=== PATIENT | male | born 1995 | race Caucasian/White ===

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

== ENCOUNTER 2018-02-16 20:46 | Emergency (ER) | payer BC, OTHER ==
--- NOTE | 2018-02-16 16:19 | EDPHY ---
H & P Stated Complaint: DYSPNEA,DIZZINESS Time Seen by Provider: 02/16/18 16:04 HPI/ROS: 22 yo M presents after eating a veggie burger with c/o redness, itching, dizziness, feels an allergic reaction has started. He has hx of allergies to all nuts, shellfish, eggs. Review of systems As per HPI General no fever no chills no weakness HEENT no eye pain no eye discharge. No eye redness, no sore throat Respiratory no cough, no shortness of breath Cardiac no chest pain, no peripheral edema GI no abdominal pain, no diarrhea, no constipation, no nausea, no vomiting no flank pain, no hematuria, no dysuria Musculoskeletal no myalgias, no joint pain Heme no easy bruising, no easy bleeding Endo no polyuria, no polydipsia Skin positive rash positive pruritus Neuro no syncope, positive dizziness, no headaches Source: Patient, Family Exam Limitations: No limitations - Personal History Current Tetanus Diphtheria and Acellular Pertussis (TDAP): Yes Tetanus Vaccine Date: < 10 years - Medical/Surgical History Hx Asthma: Yes Hx Chronic Respiratory Disease: No Hx Diabetes: No Hx Cardiac Disease: No Hx Renal Disease: No Hx Cirrhosis: No Hx Alcoholism: No Hx HIV/AIDS: No Hx Splenectomy or Spleen Trauma: No Other PMH: Lyme disease. asthma. anaphylAXIS - Family History Significant Family History: No pertinent family hx - Social History Smoking Status: Never smoked Alcohol Use: None Drug Use: None - Physical Exam Exam: 22-year-old male alert and oriented in moderate distress secondary to itching, dizziness HEENT atraumatic normocephalic, extraocular muscles intact, anicteric Oropharynx positive for erythema negative exudate, tolerating her own secretions No uvular edema, no uvular deviation, no stridor Neck supple no meningismus Lungs clear to auscultation bilaterally, no wheezing Heart regular rate and rhythm without murmur rub or gallop Abdomen nondistended normoactive bowel sounds soft nontender Back no CVA tenderness, no step-offs, no spinal tenderness Extremities no cyanosis clubbing or edema Neuro alert and oriented, no focal deficits Skin-erythema to face , neck , chest , arms-blanching Constitutional: Initial Vital Signs Temperature (C) 36.8 C 02/16/18 16:13 Heart Rate 84 02/16/18 16:13 Respiratory Rate 20 02/16/18 16:13 Blood Pressure 152/105 H 02/16/18 16:13 O2 Sat (%) 97 02/16/18 16:13 O2 Delivery Mode Room Air Allergies/Adverse Reactions: gluten Allergy (Intermediate, Verified 02/16/18 16:11) Shellfish *RETIRED-11/12/11 Allergy (Intermediate, Verified 02/16/18 16:11) EGGS Allergy (Intermediate, Uncoded 10/16/09 00:14) Hives PEANUTS Allergy (Intermediate, Uncoded 10/16/09 00:15) Hives TREE NUTS Allergy (Intermediate, Uncoded 10/16/09 00:14) Hives Home Medications: Medication Instructions Recorded Epi Pen PRN 10/16/09 EPINEPHrine [Epipen 0.3 MG] 0.3 mg IM ONCE #2 syr 02/16/18 Famotidine [Pepcid 20 MG (*)] 20 mg PO BID #10 tab 02/16/18 predniSONE 40 mg PO DAILY 3 Days #3 tablet 02/16/18 Medical Decision Making ED Course/Re-evaluation: Pt seen and evaluated for an allergic reaction, likely to nuts. Pt given Epi 0.3 mg IM then Diphenhydramine 25 mg IVP Solumedrol 125 mg IVP he continued to itch, and have fluctuating erythema Given Diphenhydramine 25 mg IVP and Famotidine 20 mg IVP With continued erythema , given a repeat dose of epinephrine 0.3 mg IM After two doses of epinephrine and my concern that he may have a large lump of allergen sitting in his gut, I contacted the hospitalist and planned to place him in the ICU in case he were to need multiple more doses of epinephrine, just as a bed was assigned he began to look markedly better and agreed to stay in the ED for 4 more hours of observation. Imp Severe allergic reaction Plan Home when improved rx for epi pen famotidine bid x 5 days prednisone burst 40 mg x 3 days Differential Diagnosis: allergic reaction - Data Points Medications Given: Discontinued Medications Diphenhydramine HCl (Benadryl Injection) 25 mg IVP EDNOW ONE Stop: 02/16/18 16:36 Last Admin: 02/16/18 16:37 Dose: 25 mg Diphenhydramine HCl (Benadryl Injection) 25 mg IVP EDNOW ONE Stop: 02/16/18 16:46 Last Admin: 02/16/18 16:57 Dose: 25 mg Epinephrine HCl (Epinephrine) 0.3 mg IM EDNOW ONE Stop: 02/16/18 16:19 Last Admin: 02/16/18 16:20 Dose: 0.3 mg Epinephrine HCl (Epinephrine) 0.3 mg IM EDNOW ONE Stop: 02/16/18 17:03 Last Admin: 02/16/18 16:55 Dose: 0.3 mg Famotidine (Pepcid) 20 mg IVP EDNOW ONE Stop: 02/16/18 16:46 Last Admin: 02/16/18 16:57 Dose: 20 mg Sodium Chloride (Ns) 1,000 mls @ 0 mls/hr IV ONCE ONE PRN Reason: Wide Open Stop: 02/16/18 16:21 Last Admin: 02/16/18 16:20 Dose: 1,000 mls Sodium Chloride (Ns) 1,000 mls @ 0 mls/hr IV ONCE ONE PRN Reason: Wide Open Stop: 02/16/18 17:02 Last Admin: 02/16/18 17:05 Dose: 1,000 mls Methylprednisolone Sodium Succinate (Solu-Medrol) 125 mg IVP EDNOW ONE Stop: 02/16/18 16:35 Last Admin: 02/16/18 16:36 Dose: 125 mg Departure - Departure Disposition: Home, Routine, Self-Care Clinical Impression: Severe allergic reaction Clinical Impression: (Ruled Out): Allergic reaction Condition: Good Instructions: General Allergic Reaction (ED) Referrals: Yani Guevara PA [Primary Care Provider] - Prescriptions: EPINEPHrine [Epipen 0.3 MG] 0.3 mg IM ONCE #2 syr Famotidine [Pepcid 20 MG (*)] 20 mg PO BID #10 tab predniSONE 40 mg PO DAILY 3 Days #3 tablet
[~2018-02-16 20:46] MED LIST: EPINEPHrine 1 MG/ML INJ IM ONE; EPINEPHrine 1 MG/ML INJ ONE; FAMOTIDINE 20 MG/2 ML SDV IVP ONE; NS 1,000 ML IV ONE; methylPREDNISolone SOD SUCC 125 MG/2 ML VIAL IVP ONE; methylPREDNISolone SOD SUCC 125 MG/2 ML VIAL ONE
[2018-02-16 21:05] VITALS: BP 109/62
== END 2018-02-16 21:01 | disposition home or self-care (01) ==
LOC: CED 20:46
DX: L29.9 Pruritus, unspecified (principal); T78.1XXA Other adverse food reactions, not elsewhere classified, initial encounter; R42 Dizziness and giddiness; Z91.010 Allergy to peanuts; Z91.012 Allergy to eggs; Z91.013 Allergy to seafood
CPT/HCPCS: 96374; J0171; J1200; J2930